=== PATIENT | male | born 1990 | race American Indian/Alaskan Native ===

== ENCOUNTER 2018-07-29 07:26 | Day surgery (SDC) | payer OTHER ==
[2018-07-29 08:29] LABS: Hematocrit 47.9 % (35.5-45.6); Hemoglobin 16.1 gm/dl (11.8-15.2)
[2018-07-29] MEDS ORDERED: LACTATED RINGERS 1,000 ML IV SCH (08:30)
[2018-07-29] MEDS ORDERED: DIPRIVAN 10 MG/ML IV ONE ×2 (08:44→09:33)
--- NOTE | 2018-07-29 08:44 | Anesthesia Consultation ---
Anesthesia Consult and Med Hx Date of service: 07/29/18 - Airway Anesthetic Teeth Evaluation: Chipped ROM Head & Neck: Adequate Mental/Hyoid Distance: Adequate Mallampati Class: Class II Intubation Access Assessment: Good - Pulmonary Exam CTA: Yes - Cardiac Exam Cardiac Exam: RRR - Pre-Operative Health Status ASA Pre-Surgery Classification: ASA2 Proposed Anesthetic Plan: General - Pulmonary Hx Smoking: Yes (3 CIAG. PER DAY X 1 YR) Hx Asthma: No Hx Respiratory Symptoms: No SOB: No COPD: No Hx Sleep Apnea: No (KEVIN PRE SCREEN LOW RISK.) - Cardiovascular System Hx Hypertension: No - Hematic Hx Anemia: Yes (no transfusion history ) - Other Systems Hx Cancer: No - Additional Comments Anesthesia Medical History Comments: 28 y.o. ASA II otherwise healthy smoker w/ scrotal cyst scheduled for scrotalplasty
[2018-07-29] MEDS ORDERED: XYLOCAINE MPF 2% ONE (08:45)
--- NOTE | 2018-07-29 08:45 | Anesthesia Day of Surgery ---
Anesthesia Day of Surgery - Day of Surgery Patient Examined: Yes Patient H&P Reviewed: Yes Patient is NPO: Yes Beta Blockers: No Cardiac Clearance: Yes Pulmonary Clearance: Yes Elio's Test: N/A (HPI reviewed, physical exam performed. All questions/concerns answered)
[2018-07-29] MEDS ORDERED: DILAUDID IV PRN (08:46)
[2018-07-29] MEDS ORDERED: SUBLIMAZE IV PRN (08:46)
[2018-07-29] MEDS ORDERED: ZOFRAN IV PRN (08:46)
[2018-07-29] MEDS ORDERED: ANCEF/STERILE WATER 2 GM/20 ML IV NR (09:00)
[2018-07-29] MEDS ORDERED: TYLENOL PO NR (09:00)
[2018-07-29] MEDS ORDERED: NEURONTIN PO NR (09:00)
[2018-07-29] MEDS ORDERED: VERSED IV NR (09:00)
[2018-07-29] MEDS ORDERED: TORADOL ONE (09:28)
[2018-07-29] MEDS ORDERED: DECADRON ONE (09:28)
[2018-07-29] MEDS ORDERED: SUBLIMAZE ONE (09:30)
--- NOTE | 2018-07-29 10:49 | Post Operative Note ---
Date of procedure: 07/29/18 Pre-op diagnosis: scrotal lesions Post-op diagnosis: same Findings: excision lesions Procedure: as above huge # lesions Anesthesia: GETA Estimated blood loss: minimal Pathology: list (masses) Specimen disposition: to lab Condition: stable Disposition: PACU
--- NOTE | 2018-07-29 10:50 | Discharge Summary ---
Short Stay Discharge Plan Activity: other (ice in rr no straining ) Diet: regular Wound: keep clean and dry Special Instructions: other (ice) Follow up with: ALL MARSHALL MD [Staff Physician] - 7 Days PRIMARY CARE, [Primary Care Provider] - 7 Days
[2018-07-29] MEDS ORDERED: NACL 0.9% IR ONE (10:53)
[2018-07-29] MEDS ORDERED: PERCOCET 5/325 ONE (11:26)
[2018-07-29] MEDS ORDERED: PERCOCET 5/325 PO ONE (11:29)
--- NOTE | 2018-07-29 12:05 | Operative Report ---
PREOPERATIVE DIAGNOSIS: Huge number of scrotal masses, some very large over 3 cm. POSTOPERATIVE DIAGNOSES: Huge number of scrotal masses, some very large over 3 cm. PROCEDURE: Excision of scrotal masses, scrotoplasty with reconstruction of the scrotum. SURGEON: Anton Engel M.D. ANESTHESIA: General. FINDINGS: This is a gentleman who has at least 20 lesions in the scrotum. These are superficial right under the skin. He now presents for excision. Some are quite large. DESCRIPTION OF PROCEDURE: The patient was brought to the operating room and placed on the operating table. Following induction of anesthesia, placed in the supine position, prepped and draped in usual sterile fashion. Using a marking pencil, the area to be excised was marked out. We preserved large amount of skin, but 2 very large lesions were excised with the surrounding lesion, centered for surrounding skin. Some of the lesions we tried to get out through the inner aspect of the scrotal fascia, but the lesions were very much stuck to the skin, so we would pretty much half to buttonhole and take out pieces, skin bridge lesion. We reconstructed the skin and scrotum with flaps. They all appeared to be viable. We did not enter the tunica vaginalis. We were not deep. We did not have to place a drain. Fascia was approximated with 3-0 and 4-0 chromic; skin with interrupted and running sutures of 3-0 and 4-0 chromic. The patient tolerated the procedure well and brought to recovery room in stable condition. JOB# [id number] BRENDA/DELMY
[2018-07-29 12:21] VITALS: BP 112/52
== END 2018-07-29 07:27 | disposition home or self-care (01) ==
LOC: OR 07:26
PROVIDERS: ATTEND Urology
DX: L72.0 Epidermal cyst (principal); N50.89 Other specified disorders of the male genital organs; F17.210 Nicotine dependence, cigarettes, uncomplicated; Z86.2 Personal history of diseases of the blood and blood-forming organs and certain disorders involving the immune mechanism
CPT/HCPCS: 11420; 36415; 85014; 85018; 88304; J0690; J1100; J1170; J1885; J2250; J2704; J3010; J7120; 88307

== ENCOUNTER 2018-08-18 16:16 | Emergency (ER) | payer OTHER ==
[2018-08-18 16:42] VITALS: BP 115/74
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
== END 2018-08-18 18:30 | disposition home or self-care (01) ==
LOC: ED 16:16
DX: S16.1XXA Strain of muscle, fascia and tendon at neck level, initial encounter (principal); S39.012A Strain of muscle, fascia and tendon of lower back, initial encounter; F17.200 Nicotine dependence, unspecified, uncomplicated; V89.2XXA Person injured in unspecified motor-vehicle accident, traffic, initial encounter; Y93.89 Activity, other specified; Y92.410 Unspecified street and highway as the place of occurrence of the external cause; Y99.8 Other external cause status
CPT/HCPCS: 72040; 72100; 99283

== ENCOUNTER 2019-03-31 02:57 | Emergency (ER) | payer SELFPAY ==
[2019-03-31 03:09] VITALS: BP 109/75
[2019-03-31] MEDS ORDERED: TORADOL IM ONE (03:31)
--- NOTE | 2019-03-31 03:31 | Emergency Department Report ---
ED General Adult HPI - General Chief complaint: Dental/Oral Stated complaint: FACE SWOLLEN, MIGRAINE, BLEEDING GUMS Source: patient Mode of arrival: Ambulatory Limitations: No Limitations - History of Present Illness Initial comments: 29yo BM states that he has a Left upper jaw tooth ache since 2 days ago. He further states that he has had an ongoing tooth problem and was seen by a dentist but did not have money for the tooth removal procedure. Pt states pain is a 10. Location: mouth Radiation: non-radiation Severity scale (0 -10): 10 Quality: sharp Consistency: constant Improves with: none Worsens with: eating Associated Symptoms: denies other symptoms Treatments Prior to Arrival: none - Related Data Previous Rx's Medication Instructions Recorded Last Taken Type Cyclobenzaprine HCl [Flexeril 5 MG 5 mg PO QHS PRN #7 tablet 08/18/18 Unknown Rx TAB] Ibuprofen 800 mg PO PRN PRN #20 tablet 08/18/18 Unknown Rx Amoxicillin/K Clav Tab [Augmentin 1 tab PO Q12HR 10 Days #20 tab 03/31/19 Unknown Rx 875 mg] Ibuprofen [Motrin 600 MG tab] 600 mg PO Q8H 7 Days #21 tab 03/31/19 Unknown Rx Allergies Allergy/AdvReac Type Severity Reaction Status Date / Time No Known Allergies Allergy Verified 08/18/18 16:17 ED Review of Systems ROS: Stated complaint: FACE SWOLLEN, MIGRAINE, BLEEDING GUMS Other details as noted in HPI Constitutional: no symptoms reported Eyes: denies: as per HPI, eye pain, eye discharge ENT: as per HPI Respiratory: no symptoms reported Cardiovascular: denies: chest pain, palpitations Endocrine: no symptoms reported Gastrointestinal: denies: abdominal pain, nausea, vomiting Genitourinary: denies: urgency, dysuria, frequency Musculoskeletal: denies: back pain, joint swelling Skin: denies: rash, lesions, change in color Neurological: denies: headache, weakness, numbness Psychiatric: denies: anxiety, depression Hematological/Lymphatic: denies: easy bleeding, easy bruising, swollen glands ED Past Medical Hx - Past Medical History Previous Medical History?: No Hx Hypertension: No Hx CVA: No Hx Heart Attack/AMI: No Hx Congestive Heart Failure: No Hx Diabetes: No Hx Deep Vein Thrombosis: No Hx Pulmonary Embolism: No Hx GERD: No Hx Liver Disease: No Hx Renal Disease: No Hx of Cancer: No Hx Arthritis: No Hx Asthma: No Hx COPD: No Hx HIV: No - Surgical History Past Surgical History?: Yes Additional Surgical History: cyst removed from scrotum - Social History Smoking Status: Current Every Day Smoker - Medications Home Medications: Home Medications Medication Instructions Recorded Confirmed Last Taken Type Cyclobenzaprine HCl [Flexeril 5 MG 5 mg PO QHS PRN #7 tablet 08/18/18 Unknown Rx TAB] Ibuprofen 800 mg PO PRN PRN #20 tablet 08/18/18 Unknown Rx Amoxicillin/K Clav Tab [Augmentin 1 tab PO Q12HR 10 Days #20 tab 03/31/19 Unknown Rx 875 mg] Ibuprofen [Motrin 600 MG tab] 600 mg PO Q8H 7 Days #21 tab 03/31/19 Unknown Rx ED Physical Exam - General Limitations: No Limitations General appearance: alert, in no apparent distress, appears intoxicated - Head Head exam: Present: atraumatic, normocephalic - ENT ENT exam: Present: other (poor dentition; decayed L upper 3rd molar) - Neck Neck exam: Present: normal inspection, tenderness - Respiratory Respiratory exam: Present: normal lung sounds bilaterally. Absent: respiratory distress, wheezes - Cardiovascular Cardiovascular Exam: Present: regular rate, normal rhythm, normal heart sounds - GI/Abdominal GI/Abdominal exam: Present: soft. Absent: distended, tenderness - Rectal Rectal exam: Present: deferred - Extremities Exam Extremities exam: Present: normal inspection, full ROM - Back Exam Back exam: Present: normal inspection, full ROM - Neurological Exam Neurological exam: Present: alert, altered, oriented X3 - Psychiatric Psychiatric exam: Present: normal affect, normal mood - Skin Skin exam: Present: warm, dry, intact ED Course Vital Signs 03/31/19 03:08 Temperature 98.9 F Pulse Rate 72 Respiratory 18 Rate Blood Pressure 109/75 O2 Sat by Pulse 98 Oximetry ED Medical Decision Making - Medical Decision Making 29yo BM states that he has a Left upper jaw tooth ache since 2 days ago. He further states that he has had an ongoing tooth problem and was seen by a dentist but did not have money for the tooth removal procedure. Pt states pain is a 10. Pt was given Toradol injection in the ED. Upon discharge he was given Ibuprofen and Augmentin; he was instructed to f/u with Dentistry and see ER as needed. Critical care attestation.: If time is entered above; I have spent that time in minutes in the direct care of this critically ill patient, excluding procedure time. ED Disposition Clinical Impression: Tooth and supporting structure disorder Disposition: - TO HOME OR SELFCARE Is pt being admited?: No Does the pt Need Aspirin: No Condition: Stable Instructions: Dental Abscess (ED) Additional Instructions: Upon discharge he was given Ibuprofen and Augmentin; he was instructed to f/u with Dentistry and see ER as needed. Prescriptions: Amoxicillin/K Clav Tab [Augmentin 875 mg] 1 tab PO Q12HR 10 Days #20 tab Ibuprofen [Motrin 600 MG tab] 600 mg PO Q8H 7 Days #21 tab Referrals: PRIMARY CARE, [Primary Care Provider] - 3-5 Days Time of Disposition: 03:39
== END 2019-03-31 03:46 | disposition home or self-care (01) ==
LOC: ED 02:57
DX: K08.89 Other specified disorders of teeth and supporting structures (principal); F17.200 Nicotine dependence, unspecified, uncomplicated; Z79.899 Other long term (current) drug therapy
CPT/HCPCS: 96372; 99282; J1885